=== PATIENT | female | born 1990 ===

== ENCOUNTER 2016-09-16 21:07 | Emergency (ER) | payer MEDICAID ==
[2016-09-16 21:08] VITALS: BMI 25.2
--- NOTE | 2016-09-16 21:38 | C.PDOC ---
History Of Present Illness Patient is 12 weeks and has been having some brownish discharge, leaking from her vagina , No f/c/n/v. No pain Not sure if it's blood. Time Seen by Provider: 09/16/16 21:38 Chief Complaint (Nursing): Female Genitourinary History Per: Patient History/Exam Limitations: no limitations Onset/Duration Of Symptoms: Days (1) Current Symptoms Are (Timing): Still Present Severity: Moderate Pain Scale Rating Of: 4 Quality Of Discomfort: Unable To Describe Associated Symptoms: denies: Fever, Chills, Nausea, Urinary Symptoms Alleviating Factors: None Recent travel outside of the [place]: No Additional History Per: Patient Abnormal Vaginal Bleeding: Yes : 1 Para: 0 Miscarriage: 0 Past Medical History Reviewed: Historical Data, Nursing Documentation, Vital Signs Vital Signs: Last Vital Signs Temp 98.2 F 09/17/16 00:00 Pulse 75 09/17/16 00:00 Resp 18 09/17/16 00:00 BP 130/84 09/17/16 00:00 Pulse Ox 100 09/17/16 01:29 Family History: States: No Known Family Hx - Social History Hx Tobacco Use: No Hx Alcohol Use: No Hx Substance Use: No - Immunization History Hx Tetanus Toxoid Vaccination: No Hx Influenza Vaccination: No Hx Pneumococcal Vaccination: No Review Of Systems Constitutional: Negative for: Fever, Chills Cardiovascular: Negative for: Chest Pain, Palpitations Respiratory: Negative for: Shortness of Breath Gastrointestinal: Positive for: Nausea. Negative for: Vomiting, Abdominal Pain Genitourinary: Positive for: Vaginal Bleeding (possible). Negative for: Dysuria , Hematuria, Pelvic Pain Musculoskeletal: Negative for: Back Pain Skin: Negative for: Rash, Lesions, Jaundice, Bruising Neurological: Negative for: Weakness Psych: Negative for: Anxiety Physical Exam - Physical Exam Appears: Non-toxic, No Acute Distress Skin: Warm, Dry Neck: Supple Chest: Symmetrical Cardiovascular: Rhythm Regular Respiratory: No Rales, No Rhonchi, No Wheezing Gastrointestinal/Abdominal: Soft, No Tenderness, Distention (), No Guarding, No Rebound Extremity: Normal ROM Extremity: Bilateral: Atraumatic, Normal Color And Temperature Neurological/Psych: Oriented x3, Normal Speech, Normal Cognition Gait: Steady ED Course And Treatment - Laboratory Results Result Diagrams: 09/16/16 21:59 09/16/16 21:59 O2 Sat by Pulse Oximetry: 100 Pulse Ox Interpretation: Normal - CT Scan/US Pelvic US Other Rad Studies (CT/US): Read By Radiologist, Radiology Report Reviewed CT/US Interpretation: IMPRESSION: 1. Single live intrauterine gestation. 2. Subchorionic hemorrhage. 3. Probable fibroid uterus. 4. LEFT ovarian cyst. 5. Incidental/non-acute findings are described above. Progress Note: blood work, ivf, pelvic US, ivf, type and screen Reevaluation Time: 01:32 Reassessment Condition: Improved Medical Decision Making Medical Decision Making: Upon provider reevaluation patient is feeling better, is medically stable, and requires no further treatment in the ED at this time. Patient will be discharged home with Rx for reglan. Counseling was provided and all questions were answered regarding diagnosis and need for follow up with Dr Clancy. There is agreement to discharge plan. Return if symptoms persist or worsen. Disposition Counseled Patient/Family Regarding: Studies Performed, Diagnosis, Need For Followup, Rx Given - Disposition Referrals: Dilshad Clancy [Staff Provider] - Disposition: HOME/ ROUTINE Disposition Time: 21:38 Condition: FAIR Prescriptions: Metoclopramide [Reglan] 1 tab PO TID PRN #25 tab PRN Reason: Nausea/Vomiting Instructions: Threatened Miscarriage (ED), Subchorionic Hemorrhage (ED) - Clinical Impression Clinical Impression: Threatened , Subchorionic hemorrhage
[2016-09-16 21:42] VITALS: O2SAT 100
[2016-09-16] MEDS ORDERED: Sodium Chloride 0.9% 1,000 ML IV ONE (21:43)
[2016-09-16 22:06] LABS: BASO % 0.3 % (0.0-2.0); EOS # 0.1 K/uL (0.0-0.7); HEMATOCRIT 31.4 % (34.0-47.0); LYMPH % 22.2 % (20.0-40.0); MEAN CELL VOLUME 85.6 fL (81.0-99.0); MEAN CORPUSCULAR HEMOGLOBIN 28.9 pg (27.0-31.0); MEAN CORPUSCULAR HGB CONC 33.8 g/dL (33.0-37.0); MEAN PLATELET VOLUME 7.8 fL (7.2-11.7); MONO # 0.5 K/uL (0.0-0.8); MONO % 5.5 % (0.0-10.0); WHITE BLOOD COUNT 8.9 K/uL (4.8-10.8)
[2016-09-16 22:09] LABS: RBC URINE 1 /hpf (0-3); URINE BACTERIA RARE (<OCC); URINE BILIRUBIN NEGATIVE (NEGATIVE); URINE BLOOD 1+ (NEGATIVE); URINE COLOR Straw (YELLOW); URINE GLUCOSE (UA) NORMAL (Normal); URINE KETONE NEGATIVE (NEGATIVE); URINE LEUKOCYTE ESTERASE NEG Leu/uL (Negative); URINE PROTEIN NEGATIVE (NEGATIVE); URINE UROBILINOGEN NORMAL mg/dL (0.2-1.0); WBC URINE 2 /hpf (0-5)
[2016-09-16 22:15] LABS: CHLORIDE 97 mmol/L (98-107); POTASSIUM 3.7 mmol/L (3.6-5.2); SODIUM 135 mmol/L (132-148)
[2016-09-16 22:17] LABS: GFR AFRICAN-AMERICAN > 60
[2016-09-16 22:18] LABS: ALB/GLOB RATIO 1.3 (1.0-2.1); ALKALINE PHOSPHATASE 33 U/L (38-126); ALT/SGPT 23 U/L (9-52); AST/SGOT 19 U/L (14-36); BILIRUBIN,TOTAL < 0.1 mg/dL (0.2-1.3); BLOOD UREA NITROGEN 8 mg/dL (7-17); CARBON DIOXIDE 23 mmol/L (22-30); GLUCOSE,RANDOM 79 mg/dL (65-105); TOTAL PROTEIN 6.8 g/dL (6.3-8.3)
[2016-09-16 22:19] LABS: CALCIUM 8.8 mg/dl (8.6-10.4)
[2016-09-17 00:21] VITALS: BP 130/84; PULSE 75; RESP 18; TEMP 98.2
--- NOTE | 2016-09-17 01:24 | US ---
EXAM: US First Trimester, Transabdominal CLINICAL HISTORY: 26 years old, female; Signs and symptoms; Lmp or gestational age (in weeks): Bleed; Other: Poss amniotic leak; ; Additional info: Vaginal bleeding, poss amniotic leak TECHNIQUE: Real-time transabdominal obstetrical ultrasound of the maternal pelvis and a first trimester with image documentation. COMPARISON: No relevant prior studies available. FINDINGS: Gestation: Single live intrauterine gestation. heart rate of 179 beats per minute. [place]-rump length of 4.25 cm, correlating with gestational age of 11 weeks 1 day. Uterus/cervix: 1.8 x 0.6 x 2.1 cm collection along gestational sac. No cervical dilatation or effacement. Few uterine masses, largest measuring 2.2 x 1.4 x 1.9 cm. Ovaries: RIGHT ovary: Normal. LEFT ovary: 2.9 x 2.7 x 2.9 cm anechoic lesion. No adnexal masses. Free fluid: No significant free fluid. IMPRESSION: 1. Single live intrauterine gestation. 2. Subchorionic hemorrhage. 3. Probable fibroid uterus. 4. LEFT ovarian cyst. 5. Incidental/non-acute findings are described above.
== END 2016-09-17 01:42 | disposition home or self-care (01) ==
LOC: C.ER 21:07
DX: O20.0 Threatened abortion (principal); O20.8 Other hemorrhage in early pregnancy; Z3A.12 12 weeks gestation of pregnancy
CPT/HCPCS: 76801; 80053; 81001; 84702; 85025; 85610; 85730; 86850; 86900; 96361; 96374; 99284; J2765; J7040